=== PATIENT | male | born 1945 | race Caucasian/White ===

== ENCOUNTER → 2017-07-30 | Outpatient (CLI) | payer MEDICARE ==
--- NOTE | 2017-07-30 15:08 | US ---
EXAMINATION TYPE: US bladder DATE OF EXAM: 07/30/2017 COMPARISON: NONE CLINICAL HISTORY: R10.33 PERIUMBLLICAL PAIN. EXAM MEASUREMENTS: Post Void Residual Volume: 22.6ml mL Normal bladder ultrasound Color Doppler performed to assess ureteral jets. Bilateral Jets seen: Yes Normal Post Void Residual (less than 50ml): yes Enlarged prostate gland measures up to 5.0 cm in transverse dimension, partially visualized. IMPRESSION: Impression on the urinary bladder by the enlarged prostate gland. No abnormal post void residual within the urinary bladder.
== END ==
LOC: RADUSWWP 14:01
PROVIDERS: ATTEND Family Medicine
DX: N40.0 Benign prostatic hyperplasia without lower urinary tract symptoms (principal)
CPT/HCPCS: 76857

== ENCOUNTER → 2018-09-17 | Outpatient (CLI) | payer MEDICARE ==
--- NOTE | 2018-09-17 13:53 | XR ---
EXAMINATION TYPE: XR chest 2V DATE OF EXAM: 09/17/2018 COMPARISON: Prior chest 06/29/2014 HISTORY: Follow-up pneumonia TECHNIQUE: Frontal and lateral views of the chest are obtained. FINDINGS: There is no focal air space opacity, pleural effusion, or pneumothorax seen. The cardiac silhouette size is within normal limits. Degenerative disc changes visualized spine, flowing anterior osteophytes in the thoracic spine may be indicative of diffuse idiopathic skeletal hyperostosis. Aor ta is dense. There are overlying cardiac leads. Arthropathy noted in the right shoulder, suspect post op change the distal left clavicle. IMPRESSION: No acute cardiopulmonary process.
== END | disposition home or self-care (01) ==
LOC: RADXRMAIN 09:26
PROVIDERS: ATTEND Family Medicine
DX: J18.9 Pneumonia, unspecified organism (principal)
CPT/HCPCS: 71046

== ENCOUNTER 2019-01-07 15:15 | Observation (INO) | payer MEDICARE ==
[2019-01-07] MEDS ORDERED: NITROGLYCERIN OINT 1 INCH/GM PACKET TOPICAL STA (15:44)
[2019-01-07] MEDS ORDERED: ASPIRIN 81 MG PO STA (15:44)
--- NOTE | 2019-01-07 15:46 | ED ---
General Adult HPI - General Chief complaint: Chest Pain Stated complaint: Chest Pain Time Seen by Provider: 01/07/19 15:35 Source: patient, RN notes reviewed Mode of arrival: wheelchair Limitations: no limitations - History of Present Illness Initial comments: Patient is a pleasant 73-year-old male presenting to the emergency Department with chest discomfort. Symptoms have been occurring intermittently over the past week or so. No discomfort at this time. Occasional symptoms do worsen with exertion. Patient has a difficult time describing type of discomfort he is experiencing. Discomfort is left chest with some radiation towards the side of the right. There may be some mild associated dyspnea. No nausea or diaphoresis. Patient did have similar symptoms a couple of years ago and had a stress test at that point which looked good. Patient has no discomfort at this time. - Related Data Home Medications Medication Instructions Recorded Confirmed busPIRone HCL [Buspar] 15 mg PO QAM 06/29/14 01/07/19 Escitalopram [Lexapro] 20 mg PO QAM 10/27/15 01/07/19 clonazePAM [KlonoPIN] 1.5 mg PO HS 10/27/15 01/07/19 Multivitamins, Thera [Multivitamin 1 tab PO DAILY 01/07/19 01/07/19 (formulary)] Tadalafil [Cialis] 20 mg PO ONCE PRN 01/07/19 01/07/19 valACYclovir HCL [Valtrex] 2,000 mg PO Q12HR PRN 01/07/19 01/07/19 Allergies Allergy/AdvReac Type Severity Reaction Status Date / Time Penicillins Allergy Rash/Hives Verified 01/07/19 15:26 Review of Systems ROS Statement: Those systems with pertinent positive or pertinent negative responses have been documented in the HPI. ROS Other: All systems not noted in ROS Statement are negative. Constitutional: Denies: fever Eyes: Denies: eye pain ENT: Denies: ear pain Respiratory: Reports: as per HPI. Denies: cough Cardiovascular: Reports: chest pain Endocrine: Denies: fatigue Gastrointestinal: Denies: abdominal pain, nausea, vomiting Genitourinary: Denies: dysuria Musculoskeletal: Denies: back pain Skin: Denies: rash Neurological: Denies: weakness Past Medical History Additional Past Medical History / Comment(s): OCD, History of Any Multi-Drug Resistant Organisms: None Reported Past Surgical History: Back Surgery, Hernia Repair, Joint Replacement Additional Past Surgical History / Comment(s): RT THUMB REPLACEMENT, LEFT SHOULDER SX X2, RT SHOULDER SX X1 Past Anesthesia/Blood Transfusion Reactions: No Reported Reaction Past Psychological History: Depression Smoking Status: Former smoker Past Alcohol Use History: Rare Past Drug Use History: None Reported - Past Family History Father Family Medical History: Myocardial Infarction ([place]) Additional Family Medical History / Comment(s): AT AGE 40-[place] Mother Additional Family Medical History / Comment(s): AT AGE 78 - COMPLICATIONS FROM P[place]INSONS General Exam Limitations: no limitations General appearance: alert, in no apparent distress Head exam: Present: atraumatic Eye exam: Present: normal appearance, PERRL ENT exam: Present: normal oropharynx Neck exam: Present: normal inspection Respiratory exam: Present: normal lung sounds bilaterally. Absent: chest wall tenderness Cardiovascular Exam: Present: regular rate, normal rhythm Expanded Peripheral pulses: 2+: Radial (R), Radial (L), Posterior Tibialis (R), Posterior Tibialis (L) GI/Abdominal exam: Present: soft. Absent: tenderness Extremities exam: Present: normal inspection. Absent: pedal edema, calf tenderness Neurological exam: Present: alert Psychiatric exam: Present: normal affect, normal mood Skin exam: Present: normal color Course Vital Signs 01/07/19 01/07/19 15:23 18:07 Temperature 97.8 F Pulse Rate 63 57 L Respiratory 16 16 Rate Blood Pressure 121/70 142/69 O2 Sat by Pulse 96 96 Oximetry - Reevaluation(s) Reevaluation #1: 01/07/19 16:29 EKG #2 shows sinus bradycardia 58. First AV block SC of 208. QRS 90. QT 468. QTC 459. Normal axis. Normal QRS. Nonspecific ST-T. EKG Findings - EKG Comments: EKG Findings:: No sinus rhythm 61. SC 198. QRS 80. QT 450. QTC 453. Normal axis. Normal QRS. Nonspecific ST-T. Medical Decision Making - Medical Decision Making Patient reevaluated and symptom-free at this point. Patient is updated on results and plan. Case was discussed in detail with Dr. cortes, who will admit, covering for Dr. Diego. - Lab Data Result diagrams: 01/07/19 16:19 01/07/19 16:19 Lab Results 01/07/19 01/07/19 01/07/19 Range/Units 16:19 16:19 16:19 WBC 11.0 H (3.8-10.6) k/uL RBC 4.97 (4.30-5.90) m/uL Hgb 14.9 (13.0-17.5) gm/dL Hct 43.9 (39.0-53.0) % MCV 88.2 (80.0-100.0) fL MCH 29.9 (25.0-35.0) pg MCHC 33.9 (31.0-37.0) g/dL RDW 13.1 (11.5-15.5) % Plt Count 184 (150-450) k/uL Neutrophils % 50 % Lymphocytes % 32 % Monocytes % 8 % Eosinophils % 6 % Basophils % 1 % Neutrophils # 5.5 (1.3-7.7) k/uL Lymphocytes # 3.6 (1.0-4.8) k/uL Monocytes # 0.8 (0-1.0) k/uL Eosinophils # 0.7 (0-0.7) k/uL Basophils # 0.1 (0-0.2) k/uL PT 11.1 (9.0-12.0) sec INR 1.1 (<1.2) APTT 24.4 (22.0-30.0) sec D-Dimer 0.66 H (<0.60) mg/L FEU Sodium 141 (137-145) mmol/L Potassium 4.6 (3.5-5.1) mmol/L Chloride 105 (98-107) mmol/L Carbon Dioxide 24 (22-30) mmol/L Anion Gap 12 mmol/L BUN 23 H (9-20) mg/dL Creatinine 0.83 (0.66-1.25) mg/dL Est GFR (CKD-EPI)AfAm >90 (>60 ml/min/1.73 sqM) Est GFR (CKD-EPI)NonAf 88 (>60 ml/min/1.73 sqM) Glucose 87 (74-99) mg/dL Calcium 9.9 (8.4-10.2) mg/dL Magnesium 2.0 (1.6-2.3) mg/dL Total Bilirubin 0.7 (0.2-1.3) mg/dL AST 29 (17-59) U/L ALT 38 (21-72) U/L Alkaline Phosphatase 88 (38-126) U/L Troponin I (0.000-0.034) ng/mL NT-Pro-B Natriuret Pep pg/mL Total Protein 8.3 H (6.3-8.2) g/dL Albumin 4.7 (3.5-5.0) g/dL 01/07/19 01/07/19 Range/Units 16:19 16:19 WBC (3.8-10.6) k/uL RBC (4.30-5.90) m/uL Hgb (13.0-17.5) gm/dL Hct (39.0-53.0) % MCV (80.0-100.0) fL MCH (25.0-35.0) pg MCHC (31.0-37.0) g/dL RDW (11.5-15.5) % Plt Count (150-450) k/uL Neutrophils % % Lymphocytes % % Monocytes % % Eosinophils % % Basophils % % Neutrophils # (1.3-7.7) k/uL Lymphocytes # (1.0-4.8) k/uL Monocytes # (0-1.0) k/uL Eosinophils # (0-0.7) k/uL Basophils # (0-0.2) k/uL PT (9.0-12.0) sec INR (<1.2) APTT (22.0-30.0) sec D-Dimer (<0.60) mg/L FEU Sodium (137-145) mmol/L Potassium (3.5-5.1) mmol/L Chloride (98-107) mmol/L Carbon Dioxide (22-30) mmol/L Anion Gap mmol/L BUN (9-20) mg/dL Creatinine (0.66-1.25) mg/dL Est GFR (CKD-EPI)AfAm (>60 ml/min/1.73 sqM) Est GFR (CKD-EPI)NonAf (>60 ml/min/1.73 sqM) Glucose (74-99) mg/dL Calcium (8.4-10.2) mg/dL Magnesium (1.6-2.3) mg/dL Total Bilirubin (0.2-1.3) mg/dL AST (17-59) U/L ALT (21-72) U/L Alkaline Phosphatase (38-126) U/L Troponin I <0.012 (0.000-0.034) ng/mL NT-Pro-B Natriuret Pep 52 pg/mL Total Protein (6.3-8.2) g/dL Albumin (3.5-5.0) g/dL - Radiology Data Radiology results: image reviewed (Chest x-ray shows no acute process) Disposition Clinical Impression: Chest pain Disposition: ADMITTED IP TO THIS HOSP Is patient prescribed a controlled substance at d/c from ED?: No Referrals: Brenda Diego MD [Primary Care Provider] - 1-2 days Decision Time: 18:12
[2019-01-07 16:31] LABS: Basophils # (A) 0.1 k/uL (0-0.2); Basophils % (A) 1 %; Eosinophils # (A) 0.7 k/uL (0-0.7); Eosinophils % (A) 6 %; HCT 43.9 % (39.0-53.0); HGB 14.9 gm/dL (13.0-17.5); Lymphocytes # (A) 3.6 k/uL (1.0-4.8); Lymphocytes % (A) 32 %; MCH 29.9 pg (25.0-35.0); MCHC 33.9 g/dL (31.0-37.0); MCV 88.2 fL (80.0-100.0); Mean Platelet Volume 7.4; Monocytes # (A) 0.8 k/uL (0-1.0); Monocytes % (A) 8 %; Neutrophils # (A) 5.5 k/uL (1.3-7.7); Neutrophils % (A) 50 %; Platelet Count 184 k/uL (150-450); RBC 4.97 m/uL (4.30-5.90); RDW 13.1 % (11.5-15.5)
[2019-01-07 16:42] LABS: ALT 38 U/L (21-72); AST 29 U/L (17-59); Albumin 4.7 g/dL (3.5-5.0); Alkaline Phosphatase 88 U/L (38-126); Anion Gap 12 mmol/L; Blood Urea Nitrogen 23 mg/dL (9-20); Calcium 9.9 mg/dL (8.4-10.2); Carbon Dioxide 24 mmol/L (22-30); Chloride 105 mmol/L (98-107); Glucose 87 mg/dL (74-99); Potassium 4.6 mmol/L (3.5-5.1); Sodium 141 mmol/L (137-145); Total Bilirubin 0.7 mg/dL (0.2-1.3); Total Protein 8.3 g/dL (6.3-8.2)
[2019-01-07 16:48] LABS: INR 1.1 (<1.2); Partial Thromboplastin Time 24.4 sec (22.0-30.0); Prothrombin Time 11.1 sec (9.0-12.0)
[2019-01-07 16:50] LABS: D-Dimer 0.66 mg/L FEU (<0.60)
--- NOTE | 2019-01-07 17:17 | XR ---
EXAMINATION TYPE: XR chest 2V DATE OF EXAM: 01/07/2019 COMPARISON: 09/17/2018 HISTORY: Chest pain TECHNIQUE: Frontal and lateral views of the chest are obtained. FINDINGS: Heart and mediastinum are normal. Lungs are clear. Diaphragm is normal. Bony thorax appear s normal. IMPRESSION: Normal chest. No change.
[2019-01-07] MEDS ORDERED: NITROGLYCERIN SL TABS 0.4 MG TAB SUBLINGUAL PRN (18:12)
[2019-01-07 19:48] VITALS: BMI 29.6
[2019-01-07] MEDS ORDERED: NALOXONE 0.4 MG/ML 1 ML VIAL IV PRN (20:45)
[2019-01-07] MEDS ORDERED: MELATONIN 3 MG TABLET PO PRN (20:45)
[2019-01-07] MEDS ORDERED: MAG HYDROX/AL HYDROX/SIMETH 30 ML CUP PO PRN (20:45)
[2019-01-07] MEDS ORDERED: ACETAMINOPHEN TAB 325 MG TAB PO PRN (20:45)
[2019-01-07] MEDS ORDERED: ONDANSETRON 4 MG/2 ML VIAL IVP PRN (20:45)
--- NOTE | 2019-01-07 20:54 | P.HPIM ---
History of Present Illness H&P Date: 01/07/19 Chief Complaint: chest pain 73-year-old male with no significant past medical history except for OCD compliant with his home medications. Presented with 3 weeks history of chest pain. He went to his PCP who performed an EKG and was concerned regarding the results so she sent him to the hospital. He describes a three-week history of intermittent chest pain no specific precipitating factor or relieving factor pain will last for a few minutes central sometimes radiating from the left and the right side sharp in nature 5-8 out of 10 in severity not associated with any nausea vomiting dizziness lightheadedness sweating or shortness of breath. Will resolve on its own without any medications. Patient denies any limitation in his physical activity except for joint pains. 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 Patient reports 2 years ago had similar pains had a stress test done was negative as diagnosed with anxiety. Currently denies any chest pain he feels comfortable laying in bed with his family at bedside. Patient updated on the plan and he was agreeable. Review of Systems Pertinent positives as noted in HPI. All other systems were reviewed and are negative Past Medical History Additional Past Medical History / Comment(s): OCD, History of Any Multi-Drug Resistant Organisms: None Reported Past Surgical History: Back Surgery, Hernia Repair, Joint Replacement Additional Past Surgical History / Comment(s): RT THUMB REPLACEMENT, LEFT SHOULDER SX X2, RT SHOULDER SX X2 Past Anesthesia/Blood Transfusion Reactions: No Reported Reaction Past Psychological History: Depression Additional Psychological History / Comment(s): OCD Smoking Status: Former smoker Past Alcohol Use History: Rare Additional Past Alcohol Use History / Comment(s): STARTED SMOKING AGE 19 AND QUIT AT 22 Past Drug Use History: None Reported - Past Family History Father Family Medical History: Myocardial Infarction ([place]) Additional Family Medical History / Comment(s): AT AGE 40-[place] Mother Additional Family Medical History / Comment(s): AT AGE 78 - COMPLICATIONS FROM PARKINSONS Medications and Allergies Home Medications Medication Instructions Recorded Confirmed Type busPIRone HCL [Buspar] 15 mg PO QAM 06/29/14 01/07/19 History Escitalopram [Lexapro] 20 mg PO QAM 10/27/15 01/07/19 History clonazePAM [KlonoPIN] 1.5 mg PO 10/27/15 01/07/19 History Multivitamins, Thera [Multivitamin 1 tab PO DAILY 01/07/19 01/07/19 History (formulary)] Allergies Allergy/AdvReac Type Severity Reaction Status Date / Time Penicillins Allergy Rash/Hives Verified 01/07/19 15:26 Physical Exam Vitals: Vital Signs Temp Pulse Pulse Resp BP BP Pulse Ox 01/07/19 20:00 60 15 01/07/19 19:27 98.2 F 63 15 163/76 96 01/07/19 19:00 60 16 142/69 94 L 01/07/19 18:07 57 L 16 142/69 96 01/07/19 15:23 97.8 F 63 16 121/70 96 Intake and Output 01/07/19 01/07/19 01/07/19 06:59 14:59 22:59 Other: Voiding Method Toilet Weight 88.451 kg Constitutional: No acute distress, conversant, pleasant Eyes: Anicteric sclerae, moist conjunctiva, no lid-lag Pupils equal round reactive to light ENMT: NC/AT Oropharynx clear, no erythema, exudates Neck: Supple, FROM, no masses, or JVD No carotid bruits No thyromegaly Lungs: Clear to auscultation Clear to percussion Normal respiratory effort, no accessory muscle use Cardiovascular: Heart regular in rate and rhythm, No murmurs, gallops, or rubs No peripheral edema Abdominal: Soft Nontender, no guarding, rebound or rigidity Abdomen moving with respiration Normoactive bowel sounds No hepatomegaly, No splenomegaly No palpable mass No abdominal wall hernia noted Skin: Normal temperature, tone, texture, turgor No induration No subcutaneous nodules No rash, lesions No ulcers Extremities: No digital cyanosis No clubbing Pedal pulses intact and symmetrical Radial pulses intact and symmetrical No calf tenderness Psychiatric: Alert and oriented to person, place and time Appropriate affect fair judgement Neuro Muscles Strength 5/5 in all 4 extremities Sensation to light touch grossly present throughout Cranial nerves II-XII grossly intact No focal sensory deficits Lymphatics: no palpable cervical or supraclavicular , or inguinal lymph nodes Results CBC & Chem 7: 01/07/19 16:19 01/07/19 16:19 Labs: Abnormal Lab Results - Last 24 Hours (Table) 01/07/19 01/07/19 01/07/19 Range/Units 16:19 16:19 16:19 WBC 11.0 H (3.8-10.6) k/uL D-Dimer 0.66 H (<0.60) mg/L FEU BUN 23 H (9-20) mg/dL Total Protein 8.3 H (6.3-8.2) g/dL Thrombosis Risk Factor Assmnt - Choose All That Apply Any of the Below Risk Factors Present?: Yes Each Factor Represents 1 point: Obesity (BMI >25) Other Risk Factors: Yes Each Risk Factor Represents 2 Points: Age 61-74 years Other congenital or acquired thrombophilia - If yes, enter type in comment: No Thrombosis Risk Factor Assessment Total Risk Factor Score: 3 Thrombosis Risk Factor Assessment Level: Moderate Risk Assessment and Plan Assessment: 73 year old male with history of OCD, no other medical problems, admitted under observation with anticipated length of stay <48 hours for chest pain to rule out ACS. Plan: atypical chest pain rule out ACS EKG showed lateral leads with early repolarization follow up troponins cardiac monitoring monitor vital signs pain control ASA OCD continue home meds DVT PPX heparin sc tid Surrogate decision-maker: patient CODE STATUS:full code Discussed with: Patient, ER Anticipated discharge: <[address]: home A total of 60 minutes was spent on the care of this complex patient more than 50 % of the time was spent in counseling and care coordination.
[2019-01-07] MEDS ORDERED: clonazePAM 1 MG TAB PO SCH (21:00)
[2019-01-07] MEDS: SODIUM CHLORIDE 0.9% 1,000 ML IV SCH (22:12)
[2019-01-07] MEDS: NITROGLYCERIN OINT 1 INCH/GM PACKET TOPICAL SCH (23:44)
[2019-01-08] MEDS: HEPARIN SODIUM,PORCINE 5,000 UNIT/ML 1 ML VIAL SQ SCH ×2 (03:39→08:14)
[2019-01-08] MEDS: NITROGLYCERIN OINT 1 INCH/GM PACKET TOPICAL SCH ×2 (05:48→11:48)
[2019-01-08] MEDS: SODIUM CHLORIDE 0.9% 1,000 ML IV SCH ×2 (05:59→08:14)
[2019-01-08 06:46] LABS: Basophils # (A) 0.1 k/uL (0-0.2); Basophils % (A) 1 %; Eosinophils # (A) 0.7 k/uL (0-0.7); Eosinophils % (A) 8 %; HCT 42.3 % (39.0-53.0); Lymphocytes # (A) 3.1 k/uL (1.0-4.8); Lymphocytes % (A) 38 %; MCH 29.8 pg (25.0-35.0); MCHC 33.1 g/dL (31.0-37.0); Mean Platelet Volume 7.4; Monocytes # (A) 0.6 k/uL (0-1.0); Monocytes % (A) 7 %; Neutrophils # (A) 3.5 k/uL (1.3-7.7); Neutrophils % (A) 43 %; Platelet Count 154 k/uL (150-450); RDW 13.1 % (11.5-15.5); WBC 8.2 k/uL (3.8-10.6)
[2019-01-08 06:58] LABS: ALT 30 U/L (21-72); AST 20 U/L (17-59); Albumin 3.5 g/dL (3.5-5.0); Alkaline Phosphatase 82 U/L (38-126); Anion Gap 6 mmol/L; Blood Urea Nitrogen 19 mg/dL (9-20); Calcium 8.5 mg/dL (8.4-10.2); Carbon Dioxide 26 mmol/L (22-30); Chloride 107 mmol/L (98-107); Cholesterol 177 mg/dL (<200); Glucose 105 mg/dL (74-99); HDL Cholesterol 24 mg/dL (40-60); LDL Cholesterol,Calculated 94 mg/dL (0-99); Potassium 4.6 mmol/L (3.5-5.1); Sodium 139 mmol/L (137-145); Total Bilirubin 0.4 mg/dL (0.2-1.3); Total Protein 6.4 g/dL (6.3-8.2); Triglycerides 295 mg/dL (<150)
[2019-01-08 07:46] VITALS: RESP 18
[2019-01-08] MEDS ORDERED: ESCITALOPRAM 20 MG TAB PO SCH (09:00)
[2019-01-08] MEDS ORDERED: busPIRone HCl 10 MG TAB PO SCH (09:00)
[2019-01-08] MEDS ORDERED: ASPIRIN 325 MG TAB PO SCH (09:00)
--- NOTE | 2019-01-08 11:03 | P.CRDCN ---
History of Present Illness History of present illness: This is a pleasant 73-year-old male with no significant past medical history. He denies history of coronary artery disease, hypertension, dyslipidemia or diabetes mellitus. He does not follow with a manager decision support for any reason. We've been asked to see him in consultation secondary to chest discomfort. He states off-and-on intermittently for the past month or so he feels a sharp pain across his chest with no specific aggravating factors. When the pain comes it is sharp in nature and last anywhere from 30-60 seconds. It subsided on its own with no radiation to the arm, back, neck or jaw. He denies any associated shortness of breath, dizziness, palpitations, nausea, vomiting or diaphoresis. He went and saw his primary care physician yesterday with complaints of overall weakness of his legs that has been going on for the past couple of weeks. He happened to mention these intermittent bouts of chest discomfort and was sent to the hospital for further evaluation. He did undergo an exercise stress echocardiogram in 2013 which was negative for stress-induced ischemia. Echocardiogram at that time revealed preserved left ventricular systolic function with ejection fraction 55-60% with mild mitral valve prolapse. He is currently chest pain-free and has had no episodes of chest discomfort since arriving at the hospital. EKG reveals sinus mechanism with no acute ST or T wave abnormalities noted. Telemetry tracings have been unremarkable. Chest x-ray is negative for an acute cardiopulmonary process. Laboratory data reviewed, cardiac enzymes negative 3, WBC 8.2, hemoglobin 14, platelets 154, d-dimer 0.66, sodium 139, potassium 4.6, creatinine 0.79, magn esium 2.0, LDL 94. He takes no daily cardiac medications. At the time of my exam: CONSTITUTIONAL: Denies fever. Denies chills. EYES: Denies blurred vision. Denies vision changes. Denies eye pain. EARS, NOSE, MOUTH & THROAT: Denies headache. Denies sore throat. Denies ear pain. CARDIOVASCULAR: Denies chest pain. Denies shortness of breath. Denies orthopnea. Denies PND. Denies palpitations. RESPIRATORY: Denies cough. GASTROINTESTINAL: Denies abdominal pain. Denies diarrhea. Denies constipation. Denies nausea. Denies vomiting. MUSCULOSKELETAL: Denies myalgias. INTEGUMENTARY: Denies pruitis. Denies rash. NEUROLOGIC: Denies numbness. Denies tingling. Denies weakness. PSYCHIATRIC: Denies anxiety. Denies depression. ENDOCRINE: Denies fatigue. Denies weight change. Denies polydipsia. Denies poly urina. GENITOURINARY: Denies burning, hematuria or urgency with micturation. HEMATOLOGIC: Denies history of anemia. Denies bleeding. Blood pressure 120/68 heart rate 57 afebrile maintaining oxygen saturation on room air GENERAL: This is a 73-year-old male in no apparent distress at the t sade of my examination. HEENT: Head is atraumatic, normocephalic. Pupils are equal, round. Sclerae an icteric. Conjunctivae are clear. Mucous membranes of the mouth are moist. Neck is supple. There is no jugular venous distention. No carotid bruit is heard. LUNGS: Clear to auscultation no wheezes, rales or rhonchi. No chest wall tenderness is noted on palpation or with deep breathing. HEART: Regular rate and rhythm without murmurs, rubs or gallops. S1 and S2 heard. ABDOMEN: Soft, nontender. Bowel sounds are heard. No organomegaly noted. EXTREMITIES: No evidence of peripheral edema and no calf tenderness noted. VASCULAR: Radial and dorsalis pedis pulses palpated, no evidence of clubbing. NEUROLOGIC: Patient is awake, alert and oriented x3. ASSESSMENT Chest pain, atypical for angina. An acute coronary event has been ruled out. History of mitral valve prolapse PLAN An acute coronary event has been ruled out with no EKG evidence of ischemia and negative cardiac enzymes. Obtain 2-D echocardiogram and Doppler study to assess cardiac structure and function. Further evaluation of mitral valve prolapse noted on previous echocardiogram. May require CHAPO as an outpatient. Perform stress echocardiogram to assess for stress-induced cardiac ischemia. Thank you kindly for this consultation. Nurse Practitioner note has been reviewed, I agree with a documented findings and plan of care. Patient was seen and examined. Past Medical History Additional Past Medical History / Comment(s): OCD, History of Any Multi-Drug Resistant Organisms: None Reported Past Surgical History: Back Surgery, Hernia Repair, Joint Replacement Additional Past Surgical History / Comment(s): RT THUMB REPLACEMENT, LEFT SHOULDER SX X2, RT SHOULDER SX X2 Past Anesthesia/Blood Transfusion Reactions: No Reported Reaction Past Psychological History: Depression Additional Psychological History / Comment(s): OCD Smoking Status: Former smoker Past Alcohol Use History: Rare Additional Past Alcohol Use History / Comment(s): STARTED SMOKING AGE 19 AND QUIT AT 22 Past Drug Use History: None Reported - Past Family History Father Family Medical History: Myocardial Infarction ([place]) Additional Family Medical History / Comment(s): AT AGE 40-[place] Mother Additional Family Medical History / Comment(s): AT AGE 78 - COMPLICATIONS FROM [place] Medications and Allergies Home Medications Medication Instructions Recorded Confirmed Type busPIRone HCL [Buspar] 15 mg PO QAM 06/29/14 01/07/19 History Escitalopram [Lexapro] 20 mg PO QAM 10/27/15 01/07/19 History clonazePAM [KlonoPIN] 1.5 mg PO HS 10/27/15 01/07/19 History Multivitamins, Thera [Multivitamin 1 tab PO DAILY 01/07/19 01/07/19 History (formulary)] Allergies Allergy/AdvReac Type Severity Reaction Status Date / Time Penicillins Allergy Rash/Hives Verified 01/07/19 15:26 Physical Exam Vitals: Vital Signs Temp Pulse Pulse Resp BP BP BP 01/08/19 07:15 97.8 F 57 L 18 120/68 01/08/19 03:51 98.2 F 60 15 123/72 01/08/19 03:30 15 01/08/19 00:00 15 01/07/19 23:21 98.1 F 57 L 15 149/77 01/07/19 20:00 60 15 01/07/19 19:27 98.2 F 63 15 163/76 01/07/19 19:00 60 16 142/69 01/07/19 18:07 57 L 16 142/69 01/07/19 15:23 97.8 F 63 16 121/70 Pulse Ox 01/08/19 07:15 97 01/08/19 03:51 98 01/08/19 03:30 01/08/19 00:00 01/07/19 23:21 98 01/07/19 20:00 01/07/19 19:27 96 01/07/19 19:00 94 L 01/07/19 18:07 96 01/07/19 15:23 96 Intake and Output 01/07/19 01/08/19 01/08/19 22:59 06:59 14:59 Other: Voiding Method Toilet Toilet Toilet # Voids 2 Weight 88.451 kg Results 01/08/19 06:32 01/08/19 06:15 Cardiac Enzymes 01/07/19 01/07/19 01/07/19 Range/Units 16:19 16:19 22:45 AST 29 (17-59) U/L Troponin I <0.012 <0.012 (0.000-0.034) ng/mL 01/08/19 01/08/19 Range/Units 04:24 06:15 AST 20 (17-59) U/L Troponin I <0.012 (0.000-0.034) ng/mL Coagulation 01/07/19 Range/Units 16:19 PT 11.1 (9.0-12.0) sec APTT 24.4 (22.0-30.0) sec Lipids 01/08/19 Range/Units 06:15 Triglycerides 295 H (<150) mg/dL Cholesterol 177 (<200) mg/dL HDL Cholesterol 24 L (40-60) mg/dL CBC 01/07/19 01/08/19 Range/Units 16:19 06:32 WBC 11.0 H 8.2 (3.8-10.6) k/uL RBC 4.97 4.70 (4.30-5.90) m/uL Hgb 14.9 14.0 (13.0-17.5) gm/dL Hct 43.9 42.3 (39.0-53.0) % Plt Count 184 154 (150-450) k/uL Comprehensive Metabolic Panel 01/07/19 01/08/19 Range/Units 16:19 06:15 Sodium 141 139 (137-145) mmol/L Potassium 4.6 4.6 (3.5-5.1) mmol/L Chloride 105 107 (98-107) mmol/L Carbon Dioxide 24 26 (22-30) mmol/L BUN 23 H 19 (9-20) mg/dL Creatinine 0.83 0.79 (0.66-1.25) mg/dL Glucose 87 105 H (74-99) mg/dL Calcium 9.9 8.5 (8.4-10.2) mg/dL AST 29 20 (17-59) U/L ALT 38 30 (21-72) U/L Alkaline Phosphatase 88 82 (38-126) U/L Total Protein 8.3 H 6.4 (6.3-8.2) g/dL Albumin 4.7 3.5 (3.5-5.0) g/dL Current Medications Generic Name Dose Route Start Last Admin Trade Name Freq PRN Reason Stop Dose Admin Acetaminophen 650 mg 01/07/19 20:45 Tylenol Tab PO Q6HR PRN Mild Pain or Fever > 100.5 Al Hydroxide/Mg Hydroxide 15 ml 01/07/19 20:45 Maalox PO Q6HR PRN Indigestion Aspirin 325 mg 01/08/19 09:00 Aspirin PO DAILY KELLEY Buspirone HCl 15 mg 01/08/19 09:00 Buspar PO QAM KELLEY Clonazepam 1.5 mg 01/07/19 21:00 01/07/19 22:04 Klonopin PO 1.5 mg HS KELLEY Administration Escitalopram Oxalate 20 mg 01/08/19 09:00 Lexapro PO QAM KELLEY Heparin Sodium (Porcine) 5,000 unit 01/08/19 00:00 01/08/19 08:14 Heparin SQ 5,000 unit Q8HR KELLEY Administration Sodium Chloride 1,000 mls @ 100 mls/hr 01/07/19 20:45 01/08/19 08:14 Saline 0.9% IV 100 mls/hr .Q10H KELLEY Administration Melatonin 3 mg 01/07/19 20:45 Melatonin PO HS PRN Insomnia Naloxone HCl 0.2 mg 01/07/19 20:45 Narcan IV Q2M PRN Opioid Reversal Nitroglycerin 1 inch 01/08/19 00:00 01/08/19 05:48 Nitro-Bid Oint TOPICAL Not Given Q6HR KELLEY Nitroglycerin 0.4 mg 01/07/19 18:12 Nitrostat SUBLINGUAL Q5M PRN Chest Pain Ondansetron HCl 4 mg 01/07/19 20:45 Zofran IVP Q8HR PRN Nausea And Vomiting Sodium Chloride 10 ml 01/07/19 21:00 01/08/19 08:14 Saline Flush IV Not Given BID KELLEY Intake and Output 01/07/19 01/08/19 01/08/19 22:59 06:59 14:59 Other: Voiding Method Toilet Toilet Toilet # Voids 2 Weight 88.451 kg 01/08/19 06:32 01/08/19 06:15
[2019-01-08 12:05] VITALS: BP 144/78; PULSE 60; TEMP 98.3
--- NOTE | 2019-01-08 13:04 | ECHOF ---
Referral Reason: MEASUREMENTS -------- HEIGHT: 172.7 cm WEIGHT: 88.5 kg BP: 120/68 RVIDd: 3.0 cm (< 3.3) IVSd: 1.1 cm (0.6 - 1.1) LVIDd: 3.6 cm (3.9 - 5.3) LVPWd: 1.2 cm (0.6 - 1.1) IVSs: 1.7 cm LVIDs: 2.5 cm LVPWs: 1.5 cm LA Diam: 3.0 cm (2.7 - 3.8) LAESV Index (A-L): 27.29 ml/m Ao Diam: 3.0 cm (2.0 - 3.7) AV Cusp: 2.1 cm (1.5 - 2.6) MV EXCURSION: 12.364 mm (> 18.000) MV EF SLOPE: 39 mm/s (70 - 150) EPSS: 0.6 cm MV E Camilo: 0.97 m/s MV DecT: 237 ms MV A Camilo: 0.99 m/s MV E/A Ratio: 0.98 RAP: 15.00 mmHg RVSP: 38.15 mmHg FINDINGS -------- Sinus rhythm. This was a technically adequate study. The left ventricular size is normal. Left ventricular wall thickness is normal. Overall left vent ricular systolic function is normal with, an EF between 60 - 65 %. The right ventricle is normal in size. Normal LA size by volume 22+/-6 ml/m2. The right atrium is normal in size. The aortic valve is trileaflet and appears structurally normal. The mitral valve is normal. Mild tricuspid regurgitation present. There is mild pulmonary hypertension. The right ventricular systolic pressure, as measured by Doppler, is 38.15mmHg. Trace/mild (physiologic) pulmonic regurgitation. The aortic root size is normal. Normal inferior vena cava with less than 50% inspiratory collapse consistent with estimated right atr ial pressure of 15 mmHg. There is no pericardial effusion. CONCLUSIONS -------- 1. Sinus rhythm. 2. This was a technically adequate study. 3. The left ventricular size is normal. 4. Left ventricular wall thickness is normal. 5. Overall left ventricular systolic function is normal with, an EF between 60 - 65 %. 6. The right ventricle is normal in size. 7. Normal LA size by volume 22+/-6 ml/m2. 8. The right atrium is normal in size. 9. The aortic valve is trileaflet and appears structurally normal. 10. The mitral valve is normal. 11. Mild tricuspid regurgitation present. 12. There is mild pulmonary hypertension. 13. The right ventricular systolic pressure, as measured by Doppler, is 38.15mmHg. 14. Trace/mild (physiologic) pulmonic regurgitation. 15. The aortic root size is normal. 16. Normal inferior vena cava with less than 50% inspiratory collapse consistent with estimated right atrial pressure of 15 mmHg. 17. There is no pericardial effusion. PNEUDRAULIC SYSTEMS MECHANIC: Kanwal Cabrales RDCS
--- NOTE | 2019-01-08 13:07 | ECHOS ---
STRESS ECHOCARDIOGRAM INDICATIONS: Chest pain. MEDICATIONS: BuSpar, Klonopin, Lexapro, multivitamin. BASELINE HEART RATE: 60 BASELINE BLOOD PRESSURE: 124/53 MAXIMUM HEART RATE: 123 MAXIMUM BLOOD PRESSURE: 208/51 85% MPHR: 126 100% MPHR: 148 METS: 10.5 MAXIMUM STAGE REACHED: 3 TOTAL EXERCISE TIME: 9:00 CLINICAL INFORMATION: Patient was exercised for a total period of 9 minutes. A peak heart rate of 123 was achieved. Maximum blood pressure of 208/51 mmHg was noted. Test was terminated because patient got short of breath. Patient did not complain of any chest pain during the test. Resting EKG shows normal sinus rhythm with normal VA. interval and QRS duration and normal ST-T waves. No ST-segment depression suggestive of ischemia was noted. Occasional PVCs are noted. The baseline echocardiographic images reveals normal left ventricular chamber size with normal left ventricular systolic function in the immediate postexercise period. Normal increase in the wall thickness and contractility is noted. FINAL IMPRESSION: 1. This stress echocardiographic study is negative for stress-induced ischemia. 2. EKG portion of the stress test is not suggestive of ischemia. 3. Occasional premature ventricular contractions are noted. MMODL / IJN: [id number] /
--- NOTE | 2019-01-08 17:17 | P.DS ---
Providers Date of admission: 01/07/19 18:12 Expected date of discharge: 01/08/19 Attending physician: Leatha Rizzo DO Consults: 01/07/19 18:12 Consult Physician Urgent Consulting Provider: Shannan Lisa Consult Reason/Comments: cp Do you want consulting provider notified?: Yes Primary care physician: Brenda Diego MD Hospital Course: The patient is a 73-year-old male with a PMH of obsessive compulsive disorder who came in for a 3 week history of chest pain. The patient had gone to his PCP who had done an EKG and was concerned and thereby sent him to the ED. The patient had described a 3 week history of intermittent chest pain with no alleviating or exacerbating factors, radiating to the left and right sides, sharp, and 5-8 out of 10 in severity with no associated symptoms. The patient was admitted under observation for evaluation by cardiology. He underwent an extensive evaluation in the ED, with troponins less than 0.012, chest x-ray unremarkable, and EKG showing normal sinus rhythm at 61 bpm. Cardiology evaluated the patient and ordered a stress echocardiogram which was negative for stress-induced ischemia with the EKG portion of the stress test also negative for ischemia. Occasional PVCs were noted. The patient was subsequently cleared for discharge. Patient was seen and examined on the day of discharge, and reported no further chest pain or any additional symptoms. Physical Examination General: Non-toxic, in no acute distress, appears stated age, normal weight HEENT: NC/AT, anicteric sclerae, moist conjunctiva, no lid-lag, PERRLA Cardiovascular: S1/S2 wnl, no murmurs, rubs, or gallops Lungs: Clear to auscultation, normal respiratory effort, no accessory muscle use Abdominal: Soft, non-tender, non-distended, no guarding, rebound, or rigidity Skin: Warm, dry Extremities: No edema or contractures Psychiatric: Alert and oriented to person, place and time, appropriate affect Neuro: CN II-XII grossly intact, Strength 5/5 in all 4 extremities, Speech intact, Sensation to light touch grossly intact throughout Discharge diagnosis: Atypical chest pain, ACS ruled out; history of mitral valve prolapse; obsessive compulsive disorder A total of 35 minutes of time were spent preparing this complex discharge summary. Pertinent Studies: As per HPI Procedures: As per HPI Patient Condition at Discharge: Good Plan - Discharge Summary Discharge Rx Participant: No New Discharge Prescriptions: Continue busPIRone HCL [Buspar] 15 mg PO QAM clonazePAM [KlonoPIN] 1.5 mg PO HS Escitalopram [Lexapro] 20 mg PO QAM Multivitamins, Thera [Multivitamin (formulary)] 1 tab PO DAILY Discharge Medication List busPIRone HCL [Buspar] 15 mg PO QAM 06/29/14 [History] Escitalopram [Lexapro] 20 mg PO QAM 10/27/15 [History] clonazePAM [KlonoPIN] 1.5 mg PO HS 10/27/15 [History] Multivitamins, Thera [Multivitamin (formulary)] 1 tab PO DAILY 01/07/19 [History] Follow up Appointment(s)/Referral(s): Brenda Diego MD [Primary Care Provider] - 1-2 days Patient Instructions/Handouts: Chest Pain (DC) Discharge Disposition: HOME SELF-CARE
== END 2019-01-08 17:20 | disposition home or self-care (01) ==
LOC: EC 15:15 → 1SOBS 18:12
PROVIDERS: ADMIT Internal Medicine; ATTEND Internal Medicine
DX: R07.89 Other chest pain (principal); F42.9 Obsessive-compulsive disorder, unspecified; R53.1 Weakness; I34.1 Nonrheumatic mitral (valve) prolapse; I49.3 Ventricular premature depolarization; F32.9 Major depressive disorder, single episode, unspecified; E66.9 Obesity, unspecified; Z68.29 Body mass index [BMI] 29.0-29.9, adult; Z79.899 Other long term (current) drug therapy; Z88.0 Allergy status to penicillin; Z96.698 Presence of other orthopedic joint implants; Z87.891 Personal history of nicotine dependence; Z82.49 Family history of ischemic heart disease and other diseases of the circulatory system; Z82.0 Family history of epilepsy and other diseases of the nervous system; F41.9 Anxiety disorder, unspecified
CPT/HCPCS: 93005 ×2; 96372; 99285; 36415; 93306; 93351; 85379; 83880; 80061; 80053 ×2; 83735; 84484 ×2; 85025 ×2; 85610; 85730; 71046; G0378 ×2; J1644

== ENCOUNTER 2019-12-06 14:02 | Emergency (ER) | payer BC, MEDICARE ==
[2019-12-06 14:11] VITALS: TEMP 98.2
[2019-12-06] MEDS ORDERED: KETOROLAC 30 MG/ML 1 ML VIAL IM STA (14:30)
--- NOTE | 2019-12-06 14:49 | XR ---
EXAMINATION TYPE: XR wrist complete RT DATE OF EXAM: 12/06/2019 COMPARISON: NONE HISTORY: Pain after falling TECHNIQUE: 3 views FINDINGS: There is impacted transverse fracture distal radial metaphysis. There is comminution. Dista l ulna appears intact. There is no dislocation. Carpal bones are intact. There is some widening of th e scapholunate joint space. There is some deformity at the base of the thumb with absence of the trap ezium. IMPRESSION: Acute impacted transverse fracture distal radial metaphysis.
--- NOTE | 2019-12-06 14:51 | XR ---
EXAMINATION TYPE: XR forearm RT DATE OF EXAM: 12/06/2019 COMPARISON: NONE HISTORY: Pain TECHNIQUE: 2 views FINDINGS: There is impacted transverse fracture distal radial metaphysis. There is no dislocation. Th ere is some widening of the scapholunate joint space consistent with ligamentous tear. The elbow join t appears intact. There is no sign of elbow joint effusion. Radial head is intact. IMPRESSION: Acute impacted distal radius fracture. Scapholunate ligament tear.
--- NOTE | 2019-12-06 14:58 | ED ---
Fall HPI - General Chief Complaint: Fall Stated Complaint: right wrist injury/slip and fall Time Seen by Provider: 12/06/19 14:15 Source: patient Mode of arrival: ambulatory - History of Present Illness Initial Comments: Patient is a 74-year-old male presenting to emergency Department with complaints of right wrist pain after he slipped and fall on ice just prior to arrival. P atient states he was walking and slipped on ice and started going backward so he reached back with his right arm to help his fall and had instant pain of his wrist area. Patient states he did not hit his head, no LOC, he denies being on blood thinners. Patient denies pain anywhere else including his lower extremities, back, hips, neck. Patient's only complaint is his right wrist injury. He states the pain is throbbing and he has significant pain with any kind of wrist movement. He rates his pain a 7/10. He is right-hand dominant. He states he has had previous surgery of his right thumb including ligament movement. He's had no other injuries of the right wrist. He has no other complaints today. Upon arrival to the ER his vital signs are stable. - Related Data Home Medications Medication Instructions Recorded Confirmed busPIRone HCL [Buspar] 15 mg PO QAM 06/29/14 01/07/19 Escitalopram [Lexapro] 20 mg PO QAM 10/27/15 01/07/19 clonazePAM [KlonoPIN] 1.5 mg PO HS 10/27/15 01/07/19 Multivitamins, Thera [Multivitamin 1 tab PO DAILY 01/07/19 01/07/19 (formulary)] Allergies Allergy/AdvReac Type Severity Reaction Status Date / Time Penicillins Allergy Rash/Hives Verified 12/06/19 14:11 Review of Systems ROS Statement: Those systems with pertinent positive or pertinent negative responses have been documented in the HPI. ROS Other: All systems not noted in ROS Statement are negative. Past Medical History Additional Past Medical History / Comment(s): OCD, History of Any Multi-Drug Resistant Organisms: None Reported Past Surgical History: Back Surgery, Hernia Repair, Joint Replacement Additional Past Surgical History / Comment(s): RT THUMB REPLACEMENT, LEFT SHOULDER SX X2, RT SHOULDER SX X2 Past Anesthesia/Blood Transfusion Reactions: No Reported Reaction Past Psychological History: Depression Smoking Status: Former smoker Past Alcohol Use History: Rare Past Drug Use History: None Reported - Past Family History Father Family Medical History: Myocardial Infarction ([place]) Additional Family Medical History / Comment(s): AT AGE 40-RI Mother Additional Family Medical History / Comment(s): AT AGE 78 - COMPLICATIONS FROM [place] General Exam - General Exam Comments Initial Comments: GENERAL: Well-appearing, well-nourished and in no acute distress. HEAD: Atraumatic, normocephalic. EYES: Pupils equal round and reactive to light, extraocular movements intact, sclera anicteric, conjunctiva are normal. ENT: TMs normal, nares patent, oropharynx clear without exudates. Moist mucous membranes. NECK: Normal range of motion, supple without lymphadenopathy or JVD. LUNGS: Breath sounds clear to auscultation bilaterally and equal. No wheezes rales or rhonchi. HEART: Regular rate and rhythm without murmurs, rubs or gallops. ABDOMEN: Soft, nontender, normoactive bowel sounds. No guarding, no rebound. No masses appreciated. : Deferred EXTREMITIES: Patient has a slight S-shaped deformity of his right wrist area with significant swelling over the dorsal aspect of his wrist. Patient has increased in pain with any wrist range of motion. He is neurovascular intact. He has no pain of the right elbow or proximal forearm. He has full range of motion of his right fingers. No pain in bilateral lower extremities, no pain in the hips. No back pain. No clubbing or cyanosis. NEUROLOGICAL: Normal speech, normal gait. PSYCH: Normal mood, normal affect. SKIN: Warm, Dry, normal turgor, no rashes or lesions noted. Limitations: no limitations Course Vital Signs 12/06/19 12/06/19 14:07 15:45 Temperature 98.2 F Pulse Rate 71 88 Respiratory 18 16 Rate Blood Pressure 151/82 122/85 O2 Sat by Pulse 95 100 Oximetry Procedures - Orthopedic Splinting/Casting Injury #1 Side: right Upper Extremity Injury Location: wrist Upper Extremity Immobilizer: sling/shoulder immobilizer (sling), sugar tong splint Medical Decision Making - Medical Decision Making Patient is a 74-year-old male presenting with right wrist pain after slipping and falling on ice today. He denies pain anywhere else, no head injury, no LOC, no blood thinners. Vitals are stable. On exam patient has deformity and swelling of the right wrist. Patient was given Toradol as well as morphine for his pain. X-rays reveal an acute impacted transverse fracture of the distal radial metaphysis. Patient was placed in a sugar tong splint with an attempt to reduce the fracture. Patient was also placed in a sling for comfort. Patient was given a copy of his x-rays and will be referred to orthopedics. Patient will use Tylenol and/or Motrin for pain relief. Patient was also given starter pack of tramadol to use as needed for severe pain. He is agreement this plan of care. He is stable for discharge. Return parameters were discussed with the patient and he verbalized understanding. I discussed with patient that he is not able to drive with arm in the sling. He agrees with this. Case discussed with Dr. Perkins. Disposition Clinical Impression: Fall, Fracture of right distal radius Disposition: HOME SELF-CARE Condition: Stable Instructions (If sedation given, give patient instructions): Wrist Fracture in Adults (ED) Additional Instructions: Please return to the Emergency Department if symptoms worsen or any other concerns. Continues to take anti-inflammatories for pain and swelling. Follow up with orthopedics tomorrow morning as discussed. Keep arm in sling for comfort. Is patient prescribed a controlled substance at d/c from ED?: No Referrals: Manuel Gauthier [Primary Care Provider] - 1-2 days Joey Guerrero MD [Medical Doctor] - 1-2 days
[2019-12-06] MEDS ORDERED: MORPHINE SULFATE 4 MG/ML SYRINGE IM STA (15:05)
[2019-12-06] MEDS ORDERED: traMADol 50 MG STARTER PACK 3 TAB BTL PO STA (15:37)
[2019-12-06 15:47] VITALS: BP 122/85; PULSE 88; RESP 16
== END 2019-12-06 15:45 | disposition home or self-care (01) ==
LOC: EC 14:02
DX: S52.591A Other fractures of lower end of right radius, initial encounter for closed fracture (principal); F42.9 Obsessive-compulsive disorder, unspecified; F32.9 Major depressive disorder, single episode, unspecified; Z88.0 Allergy status to penicillin; Z79.899 Other long term (current) drug therapy; Z87.891 Personal history of nicotine dependence; Z96.691 Finger-joint replacement of right hand; Z98.890 Other specified postprocedural states; W00.0XXA Fall on same level due to ice and snow, initial encounter; Y93.01 Activity, walking, marching and hiking
CPT/HCPCS: 73090; 73110; 99283; 29125; 96372 ×2; J2270; J1885

== ENCOUNTER 2019-12-15 06:24 | Day surgery (SDC) | payer BC, MEDICARE ==
[2019-12-11 12:41] VITALS: BMI 28.8
[2019-12-15] MEDS ORDERED: ONDANSETRON 4 MG/2 ML VIAL IVP ONE (07:00)
[2019-12-15] MEDS ORDERED: DEXAMETHASONE SOD PHOSPHATE 10 MG/ML 1 ML VIAL IV ONE (07:01)
[2019-12-15] MEDS ORDERED: LACTATED RINGERS 1,000 ML IV ONE (07:17)
[2019-12-15] MEDS ORDERED: MIDAZOLAM 2 MG/2 ML VIAL IVP ONE (07:19)
[2019-12-15] MEDS ORDERED: fentaNYL (PF) 50 MCG/ML 2 ML AMP IVP ONE (07:20)
[2019-12-15] MEDS ORDERED: PROPOFOL 10 MG/ML 20 ML VIAL IV ONE (08:15)
[2019-12-15] MEDS ORDERED: LIDOCAINE 1% INJ 10MG/ML (20 ML MDV) ONE (08:15)
[2019-12-15] MEDS ORDERED: SUCCINYLCHOLINE CHLORIDE 100 MG/5 ML SYR IV ONE (08:15)
[2019-12-15] MEDS ORDERED: MIDAZOLAM 2 MG/2 ML VIAL ONE (08:15)
[2019-12-15] MEDS ORDERED: ROCURONIUM BROMIDE 10 MG/ML 5 ML VIAL IV ONE (08:15)
--- NOTE | 2019-12-15 09:10 | P.ANPRN ---
Procedure Note - Anesthesia - Nerve Block Performed Right Supraclavicular Single Time Out Performed: Yes (719) Date of Procedure: 12/15/19 Procedure Start Time: : Procedure Stop Time: Location of Patient: PreOp Indication: Acute Post-Operative Pain, Requested by Surgeon Specifically requested for management of pain by : Jefry Leonardo Sedation Type: Sedate with meaningful contact maintained Preparation: Sterile Prep Position: Supine Catheter: None Needle Types: Pajunk Needle Gauge: 21 Ultrasound used to visualize needle placement: Yes Ultrasound used to observe medication spread: Yes Injectate: Other (see comment) (Lido 2% with epi 15cc and Ropi 0.5% 15cc) Blood Aspirated: No Pain Paresthesia on Injection Noted: No Resistance on Injection: Normal Image Stored and Saved: Yes Events: Uneventful and Well Tolerated
[2019-12-15] MEDS ORDERED: LIDOCAINE 1%-EPI 1:100,000 20 ML VIAL SQ ONE ×2 (09:45→10:02)
[2019-12-15] MEDS ORDERED: ROPIVACAINE 5 MG/ML 30 ML VIAL MISCELLANE ONE ×2 (09:45→10:02)
--- NOTE | 2019-12-15 10:02 | FL ---
EXAMINATION TYPE: FL guidance operating room DATE OF EXAM: 12/15/2019 HISTORY: Fluoroscopy time 25 seconds of fluoroscopy provided. IMPRESSION: 1. Fluoroscopy time.
--- NOTE | 2019-12-15 10:03 | XR ---
EXAMINATION TYPE: XR wrist limited RT DATE OF EXAM: 12/15/2019 COMPARISON: NONE HISTORY: Postoperative TECHNIQUE: 2 views submitted FINDINGS: Postsurgical change in near anatomic alignment IMPRESSION: Post op
[2019-12-15 10:39] VITALS: TEMP 97.6
--- NOTE | 2019-12-15 10:57 | P.OP ---
Date of Procedure: 12/15/19 Preoperative Diagnosis: Displaced right distal radius fracture Postoperative Diagnosis: Displaced right distal radius fracture Procedure(s) Performed: Open reduction and internal fixation of displaced, intraarticular right distal radius fracture (2 parts) Implants: Acumed AcuLoc 2 standard right locking volar distal radius plate with locking and cortical screws Anesthesia: fredrick LARRY Surgeon: Jefry Leonardo Quality Officer #1: Tonya Mosquera Estimated Blood Loss (ml): 10 Condition: stable Disposition: PACU Indications for Procedure: The patient is a pleasant 74-year-old male who sustained a right distal radius fracture after a mechanical fall. Treatment options (and associated risks and benefits) were discussed in the office. Surgical treatment was recommended. In preop, the patient denied any additional questions or concerns and wished to proceed with surgery. Consent forms were signed. The operative site was confirmed and marked. Description of Procedure: The patient was administered a regional nerve block by the anesthesia team and was then brought to the operating suite. He was positioned supine with the operative limb on an arm board. All bony prominences were well-padded. Anesthesia was administered uneventfully. Prophylactic IV antibiotics were administered. A tourniquet was placed on the operative arm, which was then prepped and draped in standard, sterile fashion. A timeout was performed, confirming patient identifiers, the operative side, the site and the procedure to be performed: all team members expressed agreement. The limb was exsanguinated with an Esmarch and the tourniquet was inflated. A standard volar FCR approach was utilized. The skin was incised sharply and the subcutaneous tissue were spread, coagulating superficial vessels as needed. The radial artery was identified and protected. Perforating vessels were coagulated as needed with bipolar cautery. The FCR tendon was absent (from a prior LRTI). The interval between the radial artery and where the tendon should be was developed. Blunt, spreading dissection was used to expose the pronator quadratus. There was a transverse traumatic rent in the muscle belly at the level of the fracture. This was sharply extended proximally along its radial border and & subperiosteally elevated ulnarly. The transitional fiber zone was sharply elevated to expose the fracture site. The fracture line was transverse across the metaphysis, extending intra- articularly into the distal radioulnar joint. A Chester elevator was inserted between the fragments to mobilize and reduce the fracture. Excellent alignment was achieved, confirmed with intraoperative fluoroscopy. The plate was selected, based on the patients anatomy and fracture pattern, and was positioned on the volar radius. The plate position was evaluated with fluoroscopy, adjusted until satisfactory, and the plate was provisionally pinned in place with K-wires. A cortical screw was drilled, measured and inserted into the oblong hole of the shaft. Locking screws were drilled, measured and inserted distally, confirming length and trajectory with fluoroscopy. The provisional K- wires were removed. An additional cortical screw was drilled and inserted to further secure the plate to the metaphysis. The initially placed shaft screw was noted to be slightly short and was exchanged for a longer screw. This achieved decent, but not robust purchase. An additional shaft screw was drilled, measured and inserted for additional fixation. Final x-rays were obtained which revealed excellent reduction of the fracture. A 20 inclined lateral view was obtained, confirming extra-articular screw placement. The wrist was then ranged under live fluoroscopy - this demonstrated excellent stability, with no appreciable motion at the fracture site or within the fixation construct. The wound was thoroughly irrigated with normal saline. The the transitional fiber zone and pronator quadratus were repaired over the plate with interrupted 2-0 Vicryl sutures. The tourniquet was released after 60 minutes at 250 mm Hg. Excellent hemostasis was obtained with manual presure and bipolar cautery. The subcutaneous tissues were reapproximated with interrupted 3-0 Vicryl sutures. The incision was closed with a running 4-0 nylon suture. Local anesthetic with epinephrine was injected into the perioperative subcutaneous tissues for adjunctive postoperative pain control and hemostasis. A soft, sterile dressing was applied. All sponge, needle and instrument counts were correct at the end of the case. The patient tolerated the procedure well and was taken to the recovery room in stable condition.
[2019-12-15 11:44] VITALS: BP 115/59; PULSE 75; RESP 18
== END 2019-12-15 12:25 | disposition home or self-care (01) ==
LOC: OR 06:24
PROVIDERS: ATTEND Orthopaedic Surgery
DX: S52.571A Other intraarticular fracture of lower end of right radius, initial encounter for closed fracture (principal); R45.0 Nervousness; H91.90 Unspecified hearing loss, unspecified ear; F32.9 Major depressive disorder, single episode, unspecified; G62.9 Polyneuropathy, unspecified; Z88.0 Allergy status to penicillin; Z79.899 Other long term (current) drug therapy; Z97.3 Presence of spectacles and contact lenses; Z85.828 Personal history of other malignant neoplasm of skin; Z98.890 Other specified postprocedural states; Z79.891 Long term (current) use of opiate analgesic; W00.0XXA Fall on same level due to ice and snow, initial encounter
CPT/HCPCS: 25608; 64415; 76942; 73100; C1713; J2250; J1100; J0690; J2405; J2001; J3010; J2795; J0330; J2704; 64999

== ENCOUNTER → 2021-01-30 | Outpatient (CLI) | payer MEDICARE ==
--- NOTE | 2021-02-03 13:54 | HM ---
HOLTER MONITOR REPORT DCG DATE OF THE STUDY: January 30, 2021. INDICATION: Cardiac arrhythmia. The patient was monitored for 24 hours. The baseline rhythm appeared to be sinus with a minimum heart rate of 49, max 93 and average of 61 beats per minute. Ventricular ectopic events seen in less than 1% of the total beats count. Supraventricular ectopic events seen in less than 1% of the total beats count as well. No significant sinus pause or sinus arrest exceed 3 seconds seen. There was no diary attached to the study. CONCLUSION: 1. Sinus rhythm as a baseline mechanism. 2. Rare ventricular ectopic events. 3. Rare supraventricular ectopic events. 4. There is no evidence of any significant sinus pause or sinus arrest. 5. The patient reports no symptoms. MMODL / IJN: [id number] /
== END | disposition home or self-care (01) ==
LOC: RADECHMAIN 11:57
PROVIDERS: ATTEND Family Medicine
DX: I49.9 Cardiac arrhythmia, unspecified (principal); I49.3 Ventricular premature depolarization
CPT/HCPCS: 93225; 93226

== ENCOUNTER → 2021-06-20 | Outpatient (CLI) | payer MEDICARE ==
--- NOTE | 2021-06-21 04:43 | MR ---
EXAMINATION TYPE: MR lumbar spine wo con DATE OF EXAM: 06/20/2021 COMPARISON: None HISTORY: Low back pain down both legs to feet, feet numbness all the time, symptoms for 2 years. Hist ory of low back surgery 1976. Multiplanar multiecho imaging of the lumbar spine without contrast. Lumbar vertebra have normal alignment. There is degenerative disc space narrowing at L3-4 L4-5. There is no compression fracture. There is small posterior disc bulging from L2 to L5. There is developmen tally adequate spinal canal and no significant spinal stenosis. There is some mild hypertrophic facet arthropathy at L4-5. There is minimal lateral recess stenosis. There is no lumbar paraspinal mass. I see no focal bone destruction. Sacroiliac joints appear intact. 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 No significant neural foraminal stenosis. Minimal lateral re cess stenosis at L4-5. No spinal stenosis. No fracture.
== END | disposition home or self-care (01) ==
LOC: RADMRIMAIN 15:43
PROVIDERS: ATTEND Family Medicine
DX: M48.061 Spinal stenosis, lumbar region without neurogenic claudication (principal); M47.896 Other spondylosis, lumbar region
CPT/HCPCS: 72148

== ENCOUNTER → 2021-08-25 | Outpatient (CLI) | payer MEDICARE ==
--- NOTE | 2021-08-27 04:17 | MR ---
EXAMINATION TYPE: MR thoracic spine wo con DATE OF EXAM: 08/25/2021 COMPARISON: NONE HISTORY: Spinal Stenosis of thoracic region, Pain into low back and legs TECHNIQUE: Multiplanar, multisequence imaging of thoracic spine is performed without contrast FINDINGS: A Vitamin E marker is placed posteriorly for counting purposes and is at level of superior T9 vertebra. Spinal cord shows normal course, caliber, and signal as it courses the thoracic spine. Vertebral body heights are satisfactory. Slight dextroconvex scoliotic curvature centered upper to mid thoracic spine on coronal images. [id number] multilevel anterior spurring in the thoracic s pine. Small hemangiomas involving T5 vertebra and sagittal image 7 and posterior inferior T7 vertebra sagittal image 9. Posterior disc herniation C6-C7 level effaces the anterior thecal sac sagittal ambrose ge 7. No large disc herniation in the thoracic spine. Review of the axial images shows no significant spinal canal stenosis or neural foraminal narrowing a t any thoracic level. Visualized thorax and upper abdomen show no suspicious abnormalities. IMPRESSION: As above.
== END | disposition home or self-care (01) ==
LOC: RADMRIMAIN 07:59
DX: M48.04 Spinal stenosis, thoracic region (principal)
CPT/HCPCS: 72146

== ENCOUNTER → 2021-10-13 | Outpatient (CLI) | payer MEDICARE | END | disposition home or self-care (01) | LOC: LABWHC1 11:34 | PROVIDERS: ATTEND Internal Medicine | DX: J02.9 Acute pharyngitis, unspecified (principal) | CPT/HCPCS: U0003; C9803; U0005 ==

== ENCOUNTER → 2022-02-07 | Outpatient (CLI) | payer MEDICARE ==
[2022-02-07 08:23] VITALS: BP 126/74; PULSE 61; RESP 18
--- NOTE | 2022-02-07 08:34 | P.CON ---
Consult Note - . Consult date: 02/07/22 Assessment/Plan:: HISTORY OF PRESENT ILLNESS: 76 -year-old male as a referral from Dr. Cartagena presents today with lower back pain secondary to L3-L4, L4-L5 spondylosis and L4-L5 lateral recess stenosis for evaluation. Patient states he suffers from lower back pain for several years, 8 out of 10 in intensity, waxes and wanes throughout the day based on activity but is intermittent, achy in character with sharp pain down to the inner parts of his feet bilaterally. Pain is provoked with sitting and walking for periods of 30 minutes or more. 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 He is relieved with medications (Aleve, gabapentin), LESI L4-L5 [address] Capone which were ineffective, heat, physical therapy 6 months ago, chiropractic treatment for years with his last visit one day ago, home based stretching regimen, repositioning and rest. Upon palpation of the lumbar spine while sitting and standing, pain was not provoked as intensely as it was with palpation of the SI joints. Pt also stated that the SI joints hurt more than the lumbar spine at this time. PMH: OA, MDD PSH: Denies SH: Negative x 3. and lives with spouse. 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 No recent weight los s. HEENT: No visual acuity loss, eye pain, difficulties with hearing. No nosebleeds. No difficulty swallowing. RESPIRATORY: Denies any troubles with breathing or dyspnea on exertion. CARDIOVASCULAR: Denies any chest pain, palpitations, or recent heart attacks. GASTROINTESTINAL: Denies fatty food intolerance. Has change in bowel habits and gas bloat. GENITOURINARY: Denies any blood in urine. Has increased urinary frequency. NEUROLOGICAL: + numbness and tingling along the distal extremities. No seizure disorders or headaches. MUSCULOSKELETAL: + back pain SKIN: No skin cancer. No rash. PSYCHIATRIC: Denies current depression or suicidal thoughts. ENDOCRINE: Denies current thyroid disorders. Denies any blood sugar glucose intolerance. HEME/LYMPHATIC: Denies any lumps and bumps around the neck. History of deep venous thrombosis. ALLERGY/IMMUNOLOGY: No immunoglobulin therapy. No immune deficiencies. BREAST: Denies current breast lumps, pain or nipple discharge. Physical Examinations : Constitutional : Cooperative , not in acute distress . HEENT: Neck supple. No Lymphadenopathy. Normal thyroid size . Eyes no ptosis , no icterus, no photophobia . Hearing intact. Normal oropharynx. No Thrush. Respiratory : Chest clear to auscultations bilaterally. No wheezing. No rhonchi. Cardiovascular : Regular rate and rhythm , S1 / S2. No S3 . No S4. Gastrointestinal : Abdomen soft. No tenderness. Bowel sounds x 4. No organomegaly . Genitourinary : Deferred. Neurologic : Cranial nerve II to XII intact. No focal neurological deficits. Psychiatric : alert & oriented x 3. Matching mood & appropriate affect. Judgment & insight intact. Lymphatic No Lymphadenopathy. Musculoskeletal : Cervical Spine Motor strength in the deltoid and biceps: Normal right side. Normal Left side Motor strength biceps and the wrist extensors: Normal right side . Normal left side Motor strength in the triceps muscle: Normal right side. Normal left side Deep tendon reflexes: Normal at the biceps. Normal at Brachioradialis. Normal at triceps Cervical facet loading test: positive bilaterally Spurling test: positive bilaterally Neck distraction test: positive bilaterally Damir sign: positive bilaterally Lumbar spine Motor strength lower extremities ,thigh and legs 5/5 Right side , 5/5 Left side Deep tendon reflexes : Normal Knee Jerk. Normal Ankle Jerk Vertebral body tenderness over Lumbar facet Loading Test: positive Right / positive Left Range of motion of the lumbar spine Flexion 30 degrees, extension 10 degrees Straight Leg Raise test: Left/ Right positive at degree Jhon test: positive right / positive left. Severe tenderness over the Sacroiliac joint on the Right / Left sides Gaenslen test: positive R<L Seated flexion test: positive R <L Imaging: MRI without contrast from 06/20/21 reviewed Assessment/ Plan : Recommendation of bilateral SI joint injection. May need a series of injections to obtain optimal pain relief. Risks, benefits of procedure discussed and patient verbalized understanding. Denies aspirin or anti- coagulant use. Denies medical history of diabetes. All questions answered. I have spent greater than 50 minutes on patient care today. Dr Berumen was available by phone for the evaluation of this patient. The time was used to review the medical records including relevant urine studies and Prescription history (MAPs), review of the available imaging, evaluation and examination of the patient, coordination of care with the medical staff and if applicable referring physicians, as well as creation of the medical record PQRS Measure Charge Sheet Mode of Arrival: Ambulatory - Pain Location Bilateral Lower Back Non-Pharmacological Interventions: Heat, Physical Therapy, Position/Reposition, Sitting, Standing Pharmacological Interventions: Epidural, PRN Medication, Scheduled Medication, Topical Medication PQRS Narrative: Smoking Status Former smoker Blood Pressure 126/74 Pain Intensity [Bilateral 8 Lower Back] Scale Used Numeric (1 - 10) Hx Alcohol Use (MH) No Home Medications: Ambulatory Orders busPIRone HCL [Buspar] 15 mg PO QAM 06/29/14 Escitalopram [Lexapro] 20 mg PO QAM 10/27/15 clonazePAM [KlonoPIN] 1.5 mg PO HS 10/27/15 Multivitamins, Thera [Multivitamin (formulary)] 1 tab PO DAILY 01/07/19 Loratadine [Claritin] 10 mg PO DAILY 12/11/19 oxyCODONE-APAP 5-325MG [Percocet 5-325 mg] 1 tab PO Q4HR PRN #30 tab 12/15/19
[2022-02-07 09:39] VITALS: TEMP 98
== END | disposition home or self-care (01) ==
LOC: PNWHC3 07:35
PROVIDERS: ATTEND Specialist
DX: M48.061 Spinal stenosis, lumbar region without neurogenic claudication (principal); M47.817 Spondylosis without myelopathy or radiculopathy, lumbosacral region
CPT/HCPCS: 99211

== ENCOUNTER 2022-03-15 08:55 | Day surgery (SDC) | payer MEDICARE ==
[~2022-03-15 08:55] MED LIST: LACTATED RINGERS 1,000 ML IV SCH; LIDOCAINE 1% (10MG/ML) FOR IV START INTRADERMA PRN
[2022-03-15 09:15] VITALS: TEMP 97.4
[2022-03-15] MEDS ORDERED: methylPREDNISolone ACETATE 40 MG/ML 1 ML VIAL ONE (09:22)
[2022-03-15] MEDS ORDERED: ROPIVACAINE 5MG/ML 20ML VIAL ONE (09:22)
[2022-03-15] MEDS ORDERED: MIDAZOLAM 2 MG/2 ML VIAL ONE (09:22)
[2022-03-15] MEDS ORDERED: fentaNYL (PF) 50 MCG/ML 2 ML AMP ONE (09:22)
--- NOTE | 2022-03-15 09:44 | P.PCN ---
Date of Procedure: 03/15/22 Procedure(s) Performed: Procedure= bilateral sacroiliac joints steroid injection under fluoroscopy guidance (fluoroscopy image stored on file in the radiology Department ) Preoperative diagnosis= 1-sacroiliitis 2-lumbar degenerative disc disease 3- lumbar facet arthropathy Postoperative diagnosis=Same as preop Diagnosis . Complication = none Condition= stable Anesthesia= moderate sedation with intravenous Versed 2 mg , and fentanyl 100 micrograms . Indication for the procedure= patient complaining of low back pain , examination was positive for severe tenderness over the sacroiliac joints bilaterally and patient diagnosed with sacroiliitis, for this reason he was good candidate for sacroiliac joint steroid injection. Description of the procedure= procedure risk and benefits discussed with the patient, including but not limited, risk of infection and bleeding, and ALLERGIC reaction to the medication and not complete pain relief and patient agreed with the preceding patient taken to the operating room, placed in prone position or standard monitors applied to the patient then after induction of anesthesia back prepped with chlorhexidine 3 times , Then under strict sterile technique, first I did the right sacroiliac joint the which was identified under fluoroscopy guidance been local infiltration of the skin and subcu interstitial with lidocaine 1% then 22-gauge Quincke Needle advanced slowly under fluoroscopy and placed in the right sacroiliac joint needle placement confirmed with AP and oblique and lateral view and after appropriate needle placement confirmed and after negative aspiration, or heme , then Ropivacaine 0.5% 4 mL, and 30 mg of Depo-Medrol mixed together and injected in the right sacroiliac joint after negative aspiration patient tolerated the procedure well without any complication. Then the left sacroiliac joint steroid injection done under strict sterile technique local infiltration of the skin and subcu interstitial at the location of the left sacroiliac joint then a 22-gauge Quincke Needle advanced slowly under fluoroscopy time placed in the left sacroiliac joint, needle placement confirmed with AP and oblique and lateral view then after appropriate needle placement confirmed and after negative aspiration 0.5% Ropivacaine 4 mL and 30 mg of Depo-Medrol injected in the left sacroiliac joint after negative aspiration patient tolerated the procedure well that any complications and she will follow up in clinic 3 weeks
[2022-03-15] MEDS ORDERED: IV FLUID CONTINUATION 1,000 ML IV ONE (09:49)
--- NOTE | 2022-03-15 09:54 | FL ---
EXAMINATION TYPE: FL guided pain mgmt statistic DATE OF EXAM: 03/15/2022 HISTORY: Fluoroscopy time 8 seconds of fluoroscopy provided. IMPRESSION: 1. Fluoroscopy time.
[2022-03-15 10:10] VITALS: BP 123/70; PULSE 54; RESP 16
== END 2022-03-15 10:21 | disposition home or self-care (01) ==
LOC: ORPAIN 08:55
PROVIDERS: ATTEND Specialist
DX: M46.1 Sacroiliitis, not elsewhere classified (principal); M51.36 Other intervertebral disc degeneration, lumbar region; M47.816 Spondylosis without myelopathy or radiculopathy, lumbar region; Z88.0 Allergy status to penicillin
CPT/HCPCS: J2250; J1030; J1040; J3010; J2795; G0260; 99152

== ENCOUNTER → 2022-05-09 | Outpatient (CLI) | payer MEDICARE ==
[2022-05-09 12:10] VITALS: BP 145/67; PULSE 66; RESP 18; TEMP 97.9
--- NOTE | 2022-05-10 07:39 | P.PN ---
Subjective Progress Note Date: 05/09/22 This follow-up visit for this 76 years old male, the chronic history of severe low back pain , is diagnosed with bilateral sacroiliitis and lumbar spondylosis with lumbar facet arthropathy and lumbar degenerative disc disease, recently we did bilateral sacroiliac joint steroid injection he reported he had no benefit from it, he continued to have severe low back pain and he has done physical therapy and chiropractors A continue to use [id number] Aleve, patient had elevated white count and he reported that possibly had cancer, and he was referred by his primary care to [facility] for evaluation and treatment, at this point patient is not interested in having any further inter ventional pain management and he has to take care of his cancer first and he will follow up with the pain clinic later on after he finished treatment at [facility] Objective - Vital Signs Vital signs: Vital Signs Temp 97.9 F 05/09/22 11:29 Pulse 66 05/09/22 11:29 Resp 18 05/09/22 11:29 BP 145/67 05/09/22 11:29 Pulse Ox 96 05/09/22 11:29 FiO2 Intake & Output 05/09/22 05/10/22 05/10/22 18:59 06:59 18:59 Weight 92.533 kg
== END | disposition home or self-care (01) ==
LOC: PNWHC3 10:43
PROVIDERS: ATTEND Specialist
DX: M47.896 Other spondylosis, lumbar region (principal); M51.36 Other intervertebral disc degeneration, lumbar region
CPT/HCPCS: 99211

== ENCOUNTER → 2022-05-30 | Outpatient (CLI) | payer MEDICARE ==
--- NOTE | 2022-05-30 16:53 | CT ---
EXAMINATION TYPE: CT ChestAbdPelvis w con CT DLP: 1767 mGycm, Automated exposure control for dose reduction was used. DATE OF EXAM: 05/30/2022 1:17 PM COMPARISON: None. CLINICAL INDICATION:Male, 76 years old with history of D72.829 Elevated WBC; PHH, Technique: Multiple axial images of the chest, abdomen, and pelvis were obtained following the intrav enous administration of 70 mL Isovue-300. Oral contrast given. Two-dimensional coronal and sagittal r econstructions were obtained. Findings: CHEST: LUNGS/ PLEURA: No focal consolidation, pneumothorax, or pleural effusion. No concerning pulmonary nod ules or masses. AIRWAY: Patent and unremarkable.. HEART: Size within normal limits. No pericardial effusion. MEDIASTINUM: No gross evidence of adenopathy. VASCULATURE: No aortic aneurysm. MUSCULOSKELETAL: No acute osseous abnormalities. SOFT TISSUES/LYMPH NODES: Unremarkable. LOWER NECK: No significant findings. ABDOMEN: ABDOMEN LIVER: Unremarkable GALLBLADDER AND BILE DUCTS: Unremarkable. PANCREAS: Unremarkable. SPLEEN: Enlarged spleen measuring 16.0 cm in AP dimension. ADRENAL GLANDS: Unremarkable. KIDNEYS AND URETERS: No evidence of hydronephrosis or renal calculus. The kidneys enhance symmetrical ly. No perinephric fluid collections or fat stranding. PELVIS BLADDER: Incompletely distended but grossly unremarkable. REPRODUCTIVE: Prostate is enlarged in size measuring 5.4 cm in transverse dimension. ABDOMEN & PELVIS STOMACH AND BOWEL: Small hiatal hernia, duodenum is unremarkable. No evidence of bowel obstruction. PERITONEUM: No evidence of pneumoperitoneum or free fluid. No organized fluid collections. VASCULATURE: Mild atherosclerotic calcifications are present throughout the abdominal aorta and its b ranches. No abdominal aortic aneurysm. MUSCULOSKELETAL: No acute osseous abnormalities. Mild disc degeneration changes are present throughout the thoracolumbar spine. LYMPH NODES: Multiple prominent but not enlarged retroperitoneal lymph nodes. SOFT TISSUE/ABDOMINAL WALL: A partially visualized lipoma is demonstrated within the anterior thigh m uscular tear. IMPRESSION: 1. No acute process within the chest, abdomen and pelvis. No organized fluid collection. 2. Mild splenomegaly.
== END | disposition home or self-care (01) ==
LOC: RADCTMAIN 10:46
PROVIDERS: ATTEND Internal Medicine
DX: D72.829 Elevated white blood cell count, unspecified (principal); R16.1 Splenomegaly, not elsewhere classified
CPT/HCPCS: 82565; 84520; 71260; 74177; 36415; Q9967 ×2

== ENCOUNTER 2022-06-13 06:22 | Day surgery (SDC) | payer MEDICARE ==
[2022-06-11 11:21] VITALS: BMI 31.6
[2022-06-13 06:47] VITALS: TEMP 97.2
[2022-06-13] MEDS ORDERED: PROPOFOL 10 MG/ML 20 ML VIAL IV ONE (07:03)
[2022-06-13] MEDS ORDERED: LIDOCAINE 2% INJ 20 MG/ML (2 ML VIAL) ONE (07:03)
[2022-06-13 07:51] VITALS: BP 121/81; PULSE 62; RESP 16
[2022-06-13 07:51] LABS: HCT 43.7 % (39.0-53.0); HGB 15.1 gm/dL (13.0-17.5); MCH 32.3 pg (25.0-35.0); MCHC 34.5 g/dL (31.0-37.0); MCV 93.6 fL (80.0-100.0); Mean Platelet Volume 8.3; Platelet Count 166 k/uL (150-450); RBC 4.67 m/uL (4.30-5.90); RDW 13.5 % (11.5-15.5); Reticulocyte % 2.4 % (0.5-2.0); WBC 15.4 k/uL (3.8-10.6)
[2022-06-13 08:35] LABS: Eosinophils # (M) 0.31 k/uL (0-0.7); Lymphocytes # (M) 9.55 k/uL (1.0-4.8); Monocytes # (M) 1.23 k/uL (0-1.0); Neutrophils # (M) 4.31 k/uL (1.3-7.7); Neutrophils % (M) 28 %; Nucleated Red Blood Cells 0 /100 WBC (0-0); Total Cells Counted 100
== END 2022-06-13 08:17 | disposition home or self-care (01) ==
LOC: OR 06:22
PROVIDERS: ATTEND Internal Medicine Hematology & Oncology
DX: D72.829 Elevated white blood cell count, unspecified (principal); E78.5 Hyperlipidemia, unspecified; F42.9 Obsessive-compulsive disorder, unspecified; Z88.0 Allergy status to penicillin; R16.1 Splenomegaly, not elsewhere classified; K21.9 Gastro-esophageal reflux disease without esophagitis; F32.A Depression, unspecified; M19.90 Unspecified osteoarthritis, unspecified site; H91.90 Unspecified hearing loss, unspecified ear; Z79.1 Long term (current) use of non-steroidal anti-inflammatories (NSAID); Z79.899 Other long term (current) drug therapy; Z87.891 Personal history of nicotine dependence; Z82.49 Family history of ischemic heart disease and other diseases of the circulatory system; Z82.0 Family history of epilepsy and other diseases of the nervous system; Z80.9 Family history of malignant neoplasm, unspecified
CPT/HCPCS: 85025; 85045; 38222; J2704; J2001

== ENCOUNTER → 2023-01-04 | Outpatient (CLI) | payer MEDICARE ==
--- NOTE | 2023-01-04 13:06 | US ---
EXAMINATION TYPE: US bladder DATE OF EXAM: 01/04/2023 COMPARISON: 07/30/2017 CLINICAL HISTORY: R35.0 FREQUENCY OF MICTURATION. TECHNIQUE: Multiple sonographic images of the bladder are obtained. FINDINGS: EXAM MEASUREMENTS: Pre Void Volume: 134.58 ml Post Void Residual Volume: 7.77 mL Color Doppler performed to assess ureteral jets. Bilateral Jets seen: Yes Normal Post Void Residual (less than 50ml): Yes IMPRESSION: No significant abnormality seen.
== END | disposition home or self-care (01) ==
LOC: RADUSWWP 12:06
PROVIDERS: ATTEND Family Medicine
DX: R35.0 Frequency of micturition (principal)
CPT/HCPCS: 76857

== ENCOUNTER → 2024-04-02 | Outpatient (CLI) | payer MEDICARE ==
--- NOTE | 2024-04-05 21:53 | PE ---
EXAMINATION TYPE: PET CT fusion skull to thigh DATE OF EXAM: 04/02/2024 CLINICAL INDICATION:Male, 78 years old with history of C88.4 EXTRNOD MRGNL ZN B-CELL LYMPH OF MUCOSA- ASSO; TECHNIQUE: Following the intravenous administration of 11.77 mCi of F-18 FDG, whole body images are performed from the skull base to the midthigh. Images are reviewed on the computer in the coronal, axial, and sagittal planes. Reconstructed rotating images are created on independent workstation and reviewed on the computer. A non-contrast CT is performed in conjunction with the PET scan. Glucose level 120 mg/dL CT DLP: 917 mGycm, Automated exposure control for dose reduction was used. COMPARISON: CT 05/30/2022, PET/CT None, FINDINGS: Mediastinal SUV mean is 2.1. Hepatic parenchyma SUV mean is 2.9. SKULL BASE AND NECK: No suspicious radiotracer activity. CHEST, MEDIASTINUM, AND HILAR REGION: No suspicious radiotracer activity. ABDOMEN AND PELVIS: Retroperitoneal lymph nodes are scattered throughout the abdomen with with FDG activity near backgrou nd levels. Largest on the right measuring up to 12 mm Max SUV 2.7. On the left near the aortic bifurc ation measuring 11 mm in short axis max SUV 3.8 MUSCULOSKELETAL STRUCTURES: No suspicious radiotracer activity. OTHER CT: Right aphakia mild paranasal sinus disease. Arthrosis course of the carotid bifurcations an d coronary arteries. Heart is mildly enlarged for size. The spleen is enlarged measuring up to 17.9 c m. Prostatomegaly. IMPRESSION: 1. Retroperitoneal lymph nodes with mildly elevated metabolic activity. Lymph node morphology simila r to 05/30/2022. No additional suspicious lymph nodes identified. 2. Splenomegaly 3. Prostatomegaly.
== END | disposition home or self-care (01) ==
LOC: RADPETMAIN 09:19
PROVIDERS: ATTEND Internal Medicine
DX: C88.4 Extranodal marginal zone B-cell lymphoma of mucosa-associated lymphoid tissue [MALT-lymphoma] (principal); R16.1 Splenomegaly, not elsewhere classified; N40.0 Benign prostatic hyperplasia without lower urinary tract symptoms
CPT/HCPCS: 78815; A9552

== ENCOUNTER → 2025-04-12 | Outpatient (CLI) | payer MEDICARE ==
--- NOTE | 2025-04-12 15:24 | US ---
EXAMINATION TYPE: US bladder DATE OF EXAM: 04/12/2025 COMPARISON: 01/04/2023 CLINICAL INDICATION: Male, 79 years old with history of N40.1 BENIGN PROSTATIC HYPERPLASIA N13.8 OBST RUCTI; Trouble urinating. TECHNIQUE: Grayscale and color doppler imaging of the bilateral kidneys and urinary bladder. FINDINGS: EXAM MEASUREMENTS: Post Void Residual Volume: 50 mL IGNITER CAPPER NOTES: Color Doppler performed to assess ureteral jets. Bilateral Jets seen: yes Normal Post Void Residual (less than 50ml): yes No bladder wall thickening or mass identified. Prostatomegaly with median lobe hypertrophy impressing protruding into the bladder base. IMPRESSION: 1. Minimal postvoid residual. No Bladder wall thickening. 2. Prostatomegaly. [facility], , 04/12/2025 3:22 PM
== END | disposition home or self-care (01) ==
LOC: RADUSWWP 14:44
PROVIDERS: ATTEND Family Medicine
DX: N40.1 Benign prostatic hyperplasia with lower urinary tract symptoms (principal); N13.8 Other obstructive and reflux uropathy; R39.198 Other difficulties with micturition
CPT/HCPCS: 76857